=== PATIENT | male | born 1985 | race Caucasian/White ===

== ENCOUNTER 2020-07-14 17:57 | Emergency (ER) | payer OTHER ==
[2020-07-14] MEDS ORDERED: ETODOLAC500 MG PO (19:28)
[2020-07-14] MEDS ORDERED: CYCLOBENZAPRINE10 MG PO (19:28)
== END 2020-07-14 19:45 | disposition home or self-care (01) ==
LOC: FER 17:57
DX: S39.012A Strain of muscle, fascia and tendon of lower back, initial encounter (principal); I10 Essential (primary) hypertension; W01.0XXA Fall on same level from slipping, tripping and stumbling without subsequent striking against object, initial encounter
CPT/HCPCS: 72110; 96372; J1170; J1885